=== PATIENT | female | born 1985 | race Caucasian/White ===

== ENCOUNTER 2020-07-31 11:22 | Outpatient (REF) | payer OTHER, SELFPAY ==
--- NOTE | 2020-07-31 | US_ITS ---
EXAMINATION: US THYROID CLINICAL INFORMATION: Diffuse enlargement, nontoxic multinodular goiter. COMPARISON: None TECHNIQUE: Linear transducer suresh-scale and color Doppler examination with attention to the region of the thyroid. FINDINGS: SIZE: Measurements of the thyroid lobes and nodules are given in sagittal, anteroposterior and transverse dimensions respectively. Right Thyroid Lobe: 5.4 x 1.4 x 1.6 cm, volume 6.3 mL. Parenchyma: The gland echotexture is mildly heterogeneous. Thyroid vascularity is normal. Left Thyroid Lobe: 5.0 x 0.9 x 1.6 cm, volume 3.8 mL. Parenchyma: The gland echotexture is mildly heterogeneous. Thyroid vascularity is normal. Isthmus: 0.2 cm in maximum AP dimension. RIGHT THYROID LOBE: There are 2 nodules seen. 1. Location: Inferior. Size: 0.6 x 0.5 x 0.5 cm. Nodule characteristics: Solid hypoechoic. 2. Location: Inferior. Size: 0.4 x 0.2 x 0.3 cm. Nodule characteristics: Cystic. ISTHMUS: No nodules. LEFT THYROID LOBE: There are 2 nodules seen. 1. Location: Inferior. Size: 0.6 x 0.3 x 0.5 cm. Nodule characteristics: Cystic. 2. Location: Inferior. Size: 0.7 x 0.3 x 0.5 cm. Nodule characteristics: Cystic. NODES: Included on this study bilateral normal-sized cervical lymph nodes.. US/US thyroid IMPRESSION: Thyroid top normal in size. Subcentimeter hypoechoic nodule lower pole right thyroid, other bilateral tiny colloid cysts, attention to follow-up ultrasound in 12 months recommended..
== END 2020-07-31 11:23 | disposition home or self-care (01) ==
LOC: HO.HMGCX 11:22
PROVIDERS: Visit Provider Internal Medicine
DX: E04.2 Nontoxic multinodular goiter (principal)
CPT/HCPCS: 76536